=== PATIENT | male | born 1985 | race Two or more races ===

== ENCOUNTER 2019-01-10 23:50 | Emergency (ER) | payer OTHER ==
[2019-01-11] MEDS: morphine 4 MG/ML VIAL IV (01:28)
[2019-01-11] MEDS: ONDANSETRON 4 MG INJ IV (01:28)
[2019-01-11] MEDS: HYDROmorphONE 0.5 MG/0.5 ML SYG IV (03:36)
== END 2019-01-11 05:16 | disposition home or self-care (01) ==
LOC: FTE 23:50
DX: N47.2 Paraphimosis (principal); F17.210 Nicotine dependence, cigarettes, uncomplicated
CPT/HCPCS: 96374; 96375; 99284-25; J1170